=== PATIENT | female | born 1940 ===

== ENCOUNTER → 2016-05-01 | Outpatient (CLI) | payer OTHER, MEDICARE ==
--- NOTE | 2016-05-01 19:26 | DI ---
MAMMO DIAGNOSTIC B/L,05/01/2016 2:02 PM: Clinical History: Breast discharge. Previous Exam: None at this facility. Findings: Physical examination revealed no nipple discharge even with expressing vigorously from the left breas t. There is no palpable abnormality. CC and MLO views of both breasts are obtained, and demonstrate no evidence of mass, architectural dis tortion or areas of suspicious microcalcifications. Impression: No mammographic evidence of malignancy. BIRADS: 2: Benign findings Recommendations: Annual screening. Note: Breast examination has been discussed and encouraged, and the patient informed to return if the re is any new palpable abnormality in the interval between screening. Benign findings.
== END ==
LOC: MAMMO 13:55
PROVIDERS: ATTEND Emergency Medicine
DX: N64.52 Nipple discharge (principal)
CPT/HCPCS: G0204